=== PATIENT | male | born 1985 | race Two or more races ===

== ENCOUNTER 2017-10-01 11:02 | Emergency (ER) | payer OTHER ==
--- NOTE | 2017-10-01 14:21 | ED PDOC ---
HPI: Psych/Substance Abuse Time Seen by Provider: 10/01/17 11:24 Chief Complaint (Nursing): Alcohol Ingestion Chief Complaint (Provider): ETOH intoxication ED Caveat: Intoxicated History Per: Patient History/Exam Limitations: no limitations Onset/Duration Of Symptoms: Mins (30 minutes prior to arrival) Current Symptoms Are (Timing): Still Present Additional Complaint(s): Patient presents via EMS for public alcohol intoxication that began 30 minutes prior to arrival. Patient admits to drinking last night. Other psychiatric symptoms: (-) hallucinations, (-) suicidal ideation, (-) homicidal ideation. Otherwise: (-) trauma, (-) fever, (-)headache, (-) dyspnea, (-) vomiting, (-) substance abuse, (-) patient intent of initiating a suicide attempt, (-) plan, ( -) loss of consciousness, (-) chest pain, (-) abdominal pain. Past Medical History Reviewed: Historical Data, Nursing Documentation, Vital Signs, Unable To Obtain (patient history is unreliable because he is intoxicated) Vital Signs: Last Vital Signs Temp 97.0 F L 10/01/17 11:15 Pulse 87 10/01/17 11:15 Resp 18 10/01/17 11:15 BP 117/76 10/01/17 11:15 Pulse Ox 96 10/01/17 11:15 - Medical History PMH: No Chronic Diseases - Family History Family History: States: No Known Family Hx - Allergies Allergies/Adverse Reactions: Allergies Allergy/AdvReac Type Severity Reaction Status Date / Time No Known Allergies Allergy Verified 10/01/17 11:15 Review of Systems ROS Statement: Except As Marked, All Systems Reviewed And Found Negative Review Of Systems: ROS cannot be obtained secondary to pt's inabilty to answer questions. (patient is intoxicated and unreliable) Physical Exam - Physical Exam Comments: GENERAL APPEARANCE: Patient is awake, alert, and in no acute distress. SKIN: Warm, dry; (-) cyanosis HEAD: (-) scalp swelling, (-) scalp tenderness. EYES: (-) conjunctival pallor, (-) scleral icterus, (-) nystagmus. ENMT: Mucous membranes moist. Airway patent: (-) stridor. NECK: (-) tenderness, (-) stiffness, (-) lymphadenopathy. CHEST AND RESPIRATORY: (-) rales, (-) rhonchi, (-) wheezes; breath sounds equal. ABDOMEN: Soft, (-) distention, (-) tenderness, (-) guarding. NEURO AND PSYCH: Mental status as above. Affect: Calm and cooperative. sausage wrapper: Intact. Pupils equal and reactive; EOMI; (-) facial asymmetry; tongue and uvula midline. Strength and DTRs symmetric. - ECG O2 Sat by Pulse Oximetry: 96 (RA) Pulse Ox Interpretation: Normal Medical Decision Making Medical Decision Making: Time: --11:15 Plan: --Patient's father was contacted and notified about his son's current status in the emergency room and will be picking up the patient ([phone]) --14:30 On re-evaluation, patient is resting in bed comfortably, breathing is easy and unlabored. Has no complaints at this time. Patient's father called, and will order picker/assembler the patient. --17:15 On second re-evaluation, patient is awake, alert and oriented x3 in no acute distress, speaking in full sentences, no tremors noted, ambulating with a steady gait. Patient's girlfriend is present in the ER and will take the patient home. Patient is stable for d/c. Scribe Attestation: Documented by Steve Rodarte acting as a scribe for Vicky Palencia MD. Provider Attestation: All medical record entries made by the Scribe were at my direction and personally dictated by me. I have reviewed the chart and agree that the record accurately reflects my personal performance of the history, physical exam, medical decision making, and the department course for this patient. I have also personally directed, reviewed, and agree with the discharge instructions and disposition. Disposition - Clinical Impression Clinical Impression: Alcohol intoxication - Patient ED Disposition Is Patient to be Admitted: No Counseled Patient/Family Regarding: Diagnosis, Need For Followup - Disposition Disposition: Routine/Home Disposition Time: 17:15 Condition: STABLE Additional Instructions: Thank you for letting us take care of you today. You were treated for alcohol intoxication. The emergency medical care you received today was directed at your acute symptoms. Drink plenty of water. Return to the Emergency Department if your symptoms worsen, do not improve, or if you have any other problems. Pleastact your doctor in 2 days for re-evaluation and follow up. Bring any paperwork you were given at discharge with you along with any medications you are taking to your follow up visit. Our treatment cannot replace ongoing medical care by a primary care provider (PCP) outside of the emergency department. 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
[2017-10-01 16:46] VITALS: BP 113/57; PULSE 94; TEMP 97.5
[2017-10-01 17:49] VITALS: O2SAT 96
[2017-10-01 17:50] VITALS: RESP 16
== END 2017-10-01 17:44 | disposition home or self-care (01) ==
LOC: H.ER 11:02
DX: F10.129 Alcohol abuse with intoxication, unspecified (principal)